=== PATIENT | female | born 1975 | race African-American/Black ===

== ENCOUNTER 2018-12-14 23:06 | Inpatient (IN) | payer OTHER, MEDICAID ==
[~2018-12-14] VITALS: Ht 149.9 cm; Wt 54.8 kg
[~2018-12-14 23:06] MED LIST: ARIP20TA5 PO; CARI350T29 PO; CELE200C PO; CEPH500C PO; CEVI30CA8 PO; DESV50TA4 PO; DIAZ10TA4 PO; ENOX80DI12 SC; ENOX80DI2 SC; FLUO40CA10 PO; GABA300C16 PO; HYDR200T5 PO; NALO12.5 PO; OMEP40CA38 PO; OXYC20TA41 PO; RANI-535 PO; TRA100 PO
[2018-12-15] MEDS ORDERED: SOD CHLORIDE 0.9% 1,000 ML IV STA (03:21)
[2018-12-15] MEDS ORDERED: HYDROmorphONE 1 MG/ML SYG IV STA (03:21)
[2018-12-15] MEDS ORDERED: ONDANSETRON 4 MG INJ IV STA ×2 (03:21→05:21)
[2018-12-15] MEDS ORDERED: KETOROLAC 15 MG INJ IV STA (05:21)
[2018-12-15] MEDS ORDERED: CEFEPIME 1GM/50 ML (PMX) 50 ML IVPB ONE (05:30)
[2018-12-15] MEDS: CEFEPIME 1GM/50 ML (PMX) 50 ML IVPB SCH ×3 (07:00→22:14)
[2018-12-15] MEDS ORDERED: HYDROmorphONE 2 MG/ML SYG IV PRN (07:00)
[2018-12-15] MEDS ORDERED: ONDANSETRON 4 MG INJ IV PRN (07:00)
[2018-12-15] MEDS ORDERED: ACETAMINOPHEN 325 MG TAB PO PRN (07:00)
[2018-12-15] MEDS ORDERED: CARISOPRODOL 350 MG TAB PO PRN (07:00)
[2018-12-15] MEDS: CEVIMELINE 30 MG CAP PO SCH ×3 (08:38→21:31)
[2018-12-15] MEDS: HYDROXYCHLOROQUINE 200 MG TAB PO SCH ×2 (08:38→21:31)
[2018-12-15] MEDS: TAMSULOSIN (SR) 0.4 MG CAP PO SCH ×2 (08:38→21:31)
[2018-12-15] MEDS: SOD CHLORIDE 0.45% 1,000 ML IV SCH ×3 (08:39→18:26)
[2018-12-15] MEDS: PANTOPRAZOLE (EC) 40 MG TAB PO SCH (08:40)
[2018-12-15] MEDS ORDERED: CELECOXIB 200 MG CAP PO SCH (09:00)
[2018-12-15] MEDS ORDERED: GABAPENTIN 300 MG CAP PO SCH ×3 (09:00→21:00)
[2018-12-15] MEDS ORDERED: NALOXEGOL OXALATE 12.5 MG XX SCH (09:00)
[2018-12-15] MEDS ORDERED: KETOROLAC 15 MG INJ IV PRN (16:00)
[2018-12-15 17:15] VITALS: BP 134/84; PULSE 89; RESP 17
[2018-12-15 17:22] VITALS: Ht 149.9 cm; Wt 54.8 kg
[2018-12-15 20:00] VITALS: BP 99/60; PULSE 102; RESP 19
[2018-12-15] MEDS ORDERED: DIAZEPAM 5 MG TAB PO SCH (21:00)
[2018-12-15] MEDS ORDERED: ARIPIPRAZOLE 10 MG TAB PO SCH (21:00)
[2018-12-15] MEDS ORDERED: traZODone 100 MG TAB PO SCH (21:00)
[2018-12-15] MEDS ORDERED: NON-FORMULARY/PATIENT OWN MED (Desvenlafaxine Succinate (Pristiq) 50 MG) XX SCH (21:00)
[2018-12-15] MEDS: FLUOXETINE 20 MG CAP PO SCH (21:31)
[2018-12-15] MEDS ORDERED: DESVENLAFAXINE XX SCH (23:45)
[2018-12-15] MEDS ORDERED: NALOXEGOL XX SCH (23:45)
[2018-12-16 02:00] VITALS: BP 99/54; PULSE 63; RESP 18
[2018-12-16] MEDS: SOD CHLORIDE 0.45% 1,000 ML IV SCH ×2 (04:28→15:30)
[2018-12-16] MEDS: PANTOPRAZOLE (EC) 40 MG TAB PO SCH (05:56)
[2018-12-16] MEDS: CEFEPIME 1GM/50 ML (PMX) 50 ML IVPB SCH ×4 (05:56→21:08)
[2018-12-16 08:00] VITALS: BP 98/60; PULSE 82; RESP 18
[2018-12-16] MEDS ORDERED: NALOXONE (0.4 MG/ML) INJ IV ONE (08:30)
[2018-12-16] MEDS: CEVIMELINE 30 MG CAP PO SCH ×3 (09:00→21:02)
[2018-12-16] MEDS: TAMSULOSIN (SR) 0.4 MG CAP PO SCH ×2 (09:00→21:02)
[2018-12-16] MEDS: HYDROXYCHLOROQUINE 200 MG TAB PO SCH ×2 (09:00→21:02)
[2018-12-16] MEDS ORDERED: FLUMAZENIL 0.5 MG INJ IV ONE (09:00)
[2018-12-16] MEDS ORDERED: traMADol 50 MG TAB PO PRN (09:30)
[2018-12-16] MEDS ORDERED: INFLUENZA VIRUS VACCINE 0.5 ML (DISPENSING) IM* ONE (10:00)
[2018-12-16 17:06] VITALS: BP 101/64; PULSE 80; RESP 18
[2018-12-16 20:00] VITALS: BP 107/65; PULSE 89; RESP 19
[2018-12-16] MEDS: GABAPENTIN 300 MG CAP PO SCH (21:02)
[2018-12-16] MEDS: FLUOXETINE 20 MG CAP PO SCH (21:02)
[2018-12-17] VITALS (16 sets, daily range): BP systolic 97–181; BP diastolic 46–93; PULSE 76–107; RESP 14–23
[2018-12-17] MEDS: SOD CHLORIDE 0.45% 1,000 ML IV SCH ×4 (05:00→23:00)
[2018-12-17] MEDS: PANTOPRAZOLE (EC) 40 MG TAB PO SCH (06:07)
[2018-12-17] MEDS: CEFEPIME 1GM/50 ML (PMX) 50 ML IVPB SCH ×3 (06:07→21:18)
[2018-12-17] MEDS: GABAPENTIN 300 MG CAP PO SCH ×2 (09:25→21:25)
[2018-12-17] MEDS: HYDROXYCHLOROQUINE 200 MG TAB PO SCH ×2 (09:25→21:25)
[2018-12-17] MEDS: CEVIMELINE 30 MG CAP PO SCH ×3 (09:25→21:25)
[2018-12-17] MEDS: TAMSULOSIN (SR) 0.4 MG CAP PO SCH (09:25)
[2018-12-17] MEDS ORDERED: AMPICILLIN 1 GM/NS (PMX) 50 ML IVPB SCH (12:00)
[2018-12-17] MEDS: morphine 2 MG INJ IV PRN ×2 (13:14→21:30)
[2018-12-17] MEDS ORDERED: DESFLURANE 15 MIN ONE (18:00)
[2018-12-17] MEDS ORDERED: ETOMIDATE 20 MG INJ ONE (18:00)
[2018-12-17] MEDS ORDERED: MIDAZOLAM 1 MG/ML 2 ML INJ ONE (18:05)
[2018-12-17] MEDS ORDERED: FENTAnyl 50 MCG/ML VIAL ONE (18:05)
[2018-12-17] MEDS ORDERED: NEOSTIGMINE 3 MG/3 ML SYRINGE ONE (18:05)
[2018-12-17] MEDS ORDERED: PROPOFOL 20 ML ONE (18:05)
[2018-12-17] MEDS ORDERED: ONDANSETRON 4 MG INJ ONE (18:05)
[2018-12-17] MEDS ORDERED: CEFAZOLIN 1 GM INJ ONE (18:05)
[2018-12-17] MEDS ORDERED: DEXAMETHASONE 4 MG/ML 5 ML INJ ONE (18:05)
[2018-12-17] MEDS ORDERED: GLYCOPYRROLATE 0.4 MG INJ ONE (18:05)
[2018-12-17] MEDS ORDERED: ROCURONIUM 50 MG INJ ONE (18:05)
[2018-12-17] MEDS ORDERED: MEPERIDINE 25 MG INJ IV PRN (19:00)
[2018-12-17] MEDS ORDERED: HYDROmorphONE 1 MG/5 ML IV SYRINGE IV PRN ×3 (19:00)
[2018-12-17] MEDS ORDERED: DIPHENHYDRAMINE 50 MG INJ IV PRN (19:00)
[2018-12-17] MEDS ORDERED: IPRATROPIUM (NEB) 0.5 MG/2.5 ML AMP HHN PRN (19:00)
[2018-12-17] MEDS ORDERED: FENTAnyl 50 MCG/ML VIAL IV PRN ×2 (19:00)
[2018-12-17] MEDS ORDERED: MIDAZOLAM 1 MG/ML 2 ML INJ IV PRN (19:00)
[2018-12-17] MEDS ORDERED: LABETALOL HCL 20MG INJ IV PRN (19:00)
[2018-12-17] MEDS ORDERED: ALBUTEROL 0.083% (NEB) 2.5 MG/3 ML AMP HHN PRN (19:00)
[2018-12-17] MEDS ORDERED: EPHEDrine 25 MG/5 ML SYG IV PRN (19:00)
[2018-12-17] MEDS ORDERED: ONDANSETRON 4 MG INJ IV PRN (19:00)
[2018-12-17] MEDS ORDERED: hydrALAzine 20 MG INJ IV PRN (19:00)
[2018-12-17] MEDS ORDERED: IOHEXOL 300MG/ML 30 ML BTL ONE (19:20)
[2018-12-17] MEDS ORDERED: SUGAMMADEX SODIUM 200 MG/2 ML VIAL IV ONE (19:39)
[2018-12-17] MEDS: FENTAnyl 50 MCG/ML VIAL IV PRN ×2 (20:03→20:30)
[2018-12-17] MEDS: FLUOXETINE 20 MG CAP PO SCH (21:25)
[2018-12-17] MEDS ORDERED: traZODone 100 MG TAB PO SCH (22:00)
[2018-12-18 02:00] VITALS: BP 112/56; PULSE 80; RESP 17
[2018-12-18] MEDS: PANTOPRAZOLE (EC) 40 MG TAB PO SCH (06:38)
[2018-12-18 08:23] VITALS: BP 112/67; PULSE 74; RESP 18
[2018-12-18] MEDS: HYDROXYCHLOROQUINE 200 MG TAB PO SCH (09:04)
[2018-12-18] MEDS: CEFEPIME 1GM/50 ML (PMX) 50 ML IVPB SCH (09:04)
[2018-12-18] MEDS: GABAPENTIN 300 MG CAP PO SCH (09:04)
[2018-12-18] MEDS: CEVIMELINE 30 MG CAP PO SCH ×2 (09:04→13:34)
[2018-12-18] MEDS ORDERED: KETOROLAC 30 MG INJ IV STA (09:14)
[2018-12-18] MEDS ORDERED: BISACODYL (EC) 5 MG TAB PO ONE (10:00)
[2018-12-18] MEDS ORDERED: FLUCONAZOLE 150 MG TAB PO ONE (12:00)
== END 2018-12-18 13:52 | disposition home or self-care (01) | DRG 660 ==
LOC: E/R 23:06 → 5EC 12-15 05:48
PROVIDERS: ADMIT Legal Medicine; ATTEND Legal Medicine
PROC: 0TC78ZZ Extirpation of Matter from Left Ureter, Via Natural or Artificial Opening Endoscopic (ICD-10-PCS; 2018-12-17)
PROC: BT1DYZZ Fluoroscopy of Right Kidney, Ureter and Bladder using Other Contrast (ICD-10-PCS; 2018-12-17)
PROC: 0T778DZ Dilation of Left Ureter with Intraluminal Device, Via Natural or Artificial Opening Endoscopic (ICD-10-PCS; principal; 2018-12-17 17:30)
DX: N13.6 Pyonephrosis (principal); Q79.60 Ehlers-Danlos syndrome, unspecified; N17.9 Acute kidney failure, unspecified; G89.4 Chronic pain syndrome; I10 Essential (primary) hypertension; K21.9 Gastro-esophageal reflux disease without esophagitis; Z98.84 Bariatric surgery status; N10 Acute pyelonephritis; M43.17 Spondylolisthesis, lumbosacral region; N83.202 Unspecified ovarian cyst, left side; F15.11 Other stimulant abuse, in remission; F11.11 Opioid abuse, in remission; F12.11 Cannabis abuse, in remission; R41.82 Altered mental status, unspecified
CPT/HCPCS: 36415; 71045; 74018; 74176; 74420; 80048; 80053; 80307; 81001; 83690; 84703; 85025; 85610; 85730; 87086; 88300; 90686; 93005; 96361; 96374; 96375; C2617; J0290; J0360; J0400; J0690; J0692; J1100; J1170; J1885; J2250; J2270; J2405; J2710; J3010; J7030; Q9967